=== PATIENT | female | born 1960 | race Caucasian/White ===

== ENCOUNTER → 2018-07-07 16:33 | Outpatient (CLI) | payer OTHER, SELFPAY ==
--- NOTE | 2018-07-07 16:41 | BI_ITS ---
MAMMOGRAPHY - BILATERAL SCREENING REASON FOR EXAM: Female, 58 years old. Routine annual screening examination. PERTINENT HISTORY: fam hx sister age 37 no sx TECHNIQUE: Digital bilateral breast fernando (3D mammographic acquisition) in the CC and MLO projections. 2-D mediolateral oblique (MLO) and craniocaudad (CC) views of both breasts were obtained. CAD: Full Field Digital Mammography with Computer Added Detection was performed. COMPARISON: Jul 11 2015 8:23am FINDINGS: Breast Composition: There are scattered areas of fibroglandular density. There are no dominant masses or suspicious calcifications. No other significant abnormalities are identified. BI/SCREENING MAMM (CAD), BILAT IMPRESSION: Stable bilateral screening mammogram. Yearly follow-up mammogram recommended. (A) ASSESSMENT CATEGORY: BIRADS Category 2: Benign. A letter regarding these results will be sent to the patient by the facility within 30 days. Approximately 10% of breast cancers are not detected by mammography. A normal mammogram should not delay biopsy of a clinically suspicious abnormality. [id number] Electronically Signed: Lucho Velásquez MD at 14:29 EDT Tel , Service support ,
== END ==
PROVIDERS: Family Provider Family Medicine; PCP Family Medicine; Referring Provider Obstetrics & Gynecology; Visit Provider Obstetrics & Gynecology
DX: Z12.31 Encounter for screening mammogram for malignant neoplasm of breast (principal)
CPT/HCPCS: 77063; 77067

== ENCOUNTER → 2018-09-14 17:13 | Outpatient (CLI) | payer OTHER, SELFPAY ==
[2018-09-14 10:18] VITALS: BMI 33.0
--- OUTSIDE RECORDS SUMMARY | 2018-11-01 02:22 | XMS RPT_ITS ---
:1960 Author Organization [facility] Care Team Providers Name Role Phone KEITH BEGUM Attending Unavailable KEITH BEGUM Referring Unavailable Abigail Gibbons Attending Unavailable Abigail Gibbons Referring Unavailable Keith Begum Primary Care Unavailable Keith Begum Attending Unavailable Abigail Gibbons Attending Unavailable Abigail Gibbons Referring Unavailable Keith Begum Primary Care Unavailable Abigail Gibbons Attending Unavailable Keith Begum Referring Unavailable PROBLEMS PROBLEMS DATE TYPE CONDITION / CODE ATTENDING STATUS SOURCE 09/14/2018 Unknown N39.42 - Marcanthony, Active [place] Incontinence [facility] without sensory Hospital awareness / Repository N39.42(ICD-10) 09/14/2018 Unknown N39.0 - Urinary Marcanthony, Active [place] tract infection, [facility] site not specified Hospital / N39.0(ICD-10) Repository 09/14/2018 Unknown F32.2 - Major Marcanthony, Active [place] depressive [facility] disorder, single Hospital episode, severe Repository without psychotic features / F32.2(ICD-10) 09/14/2018 Unknown Z01.411 - Encounter Marcanthony, Active [place] for gynecological [facility] (general) (routine) Repository with abnormal findings / Z01.411(ICD-10) 06/09/2018 Active Unknown / KEITH BEGUM Active [facility] UNK(Unknown) Main [place] Repository PROCEDURES PROCEDURES No Procedure Records 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 REPOSITORY [facility] [address] [place] [address]. [address] [place] [address] OFFICE VISIT Date of Service: 09/14/18 MR#: [id number] Acct: [id number] Name: RAMILA CORONA Rep #: [id number] : 1960 Provider: Abigail Gibbons MD Age/Sex: 58/F Location: [facility] Status: Signed Intake Vital Signs09/14/18 Height 5 ft 8 in 09/14/18 Weight: 217 lb 4 oz 09/14/18 Body Mass Index (BMI) 33.0 09/14/18 Blood Pressure 122/78 H Intake Visit Reasons: ANNUAL - R/S FROM 09/09 Head Rigger Required: No Is patient in pain?: No Allergies No Known Allergies Allergy (Verified 09/14/18 10:19) Medications estradiol 0.01% (0.1 mg/gram) vaginal cream 1 g VAGINAL DAILY 09/14/18 [History Confirmed 09/14/18] fluticasone 50 mcg/actuation nasal spray,suspension 1 spray INTRANASAL DAILY 09/14/18 [History Confirmed 09/14/18] venlafaxine ER 75 mg capsule,extended release 24 hr 75 mg PO DAILY #30 cap 09/14/18 [Rx Confirmed 09/14/18] Is last menstrual period known: No Post menopausal: No Patient : No : No PFSH Medical History Arthritis (Acute) Surgical History Ganglion cyst (Acute) H/O tubal ligation (Acute) History of tonsillectomy and adenoidectomy (Acute) Social History number of children: 3 current occupational status: employed current occupation: [employer] Smoking Status: Never smoker alcohol intake: never substance use type: does not use seatbelt use: always do you feel safe at home: Yes additional social history: [employer] Pregancy History 3 Elective abortions Hx Para 3 Spontaneous abortions Past Pregnancies Del. DateName GA/Weeks Outcome Route Bth WeighInfant GeLabor LgtAnesthesiDel LocatProvider FOB t n h a n HPI ANNUAL - R/S FROM 09/09: Details: RAMILA CORONA is a 58 year old who presents for annual exam. dtr layton mckeon is struggling and her and her are estranged. she is living with her right now. he is struggling with a PTSD or something. she is strugglingw ith depression now, feeling agitated, not sleeping, anhedonia, feeling withdrawn. Last PAP: 2015 nl pap hpv at [facility] History of abnormal PAP: no Last mammogram: july History of abnormal mammogram: Colon cancer screening: per pcp Other preventative health care screenings: pcp Female Reproductive History Questions: Metorrhagia: No, Sexually active: Yes, Dyspareunia: No, PCB: No Menopausal Symptoms: Yes night sweats, Yes hot flashes ROS Const Constitutional: Reports night sweats Cardio Card: Denies chest pain Resp Resp: Denies dyspnea or cough GI GI: Reports as per HPI; denies bloating, abdominal pain, constipation, vomiting or nausea : Reports hot flashes, urinary frequency and urinary incontinence (3-4x weekly); denies nipple discharge Skin Skin/Breast: Denies breast pain, breast skin changes, nipple discharge, breast lump or changing lesions Exam Const General: cooperative, healthy appearing, comfortable, no acute distress, well developed, well groomed HENMT Head: normal to inspection, normocephalic Ears: hearing grossly normal bilaterally, external ears normal Nose: external nose normal Face and sinus: normal facial exam Neck Neck: normal visual inspection, full ROM, no lymphadenopathy Thyroid: thyroid normal Chest Chest palpation AND inspection: normal inspection of the chest Breast inspection: normal inspection of the breasts, normal inspection of the axillae Breast palpation: normal palpation of the breasts, normal palpation of the axillae, no axillary lymphadenopathy Resp Effort AND Inspection: normal respiratory effort GI Inspection: normal to inspection, non-distended Palpation: no guarding, soft, no hepatosplenomegaly General: bladder normal to palpation External Female Exam: normal external appearance, normal appearance of the urethra, no lesions Urethra: normal appearance of the urethra, normal palpation Speculum Exam - Vagina: normal appearance of the vagina, normal vaginal discharge Speculum Exam - Cervix: normal appearance of the cervix, no cervical discharge, no lesions, nontender Bimanual Exam- Vagina AND Uterus: No cervical tenderness, normal bimanual exam, uterine size normal, bladder normal to palpation, uterine mobility normal, uterine consistency normal, uterus non-tender, no cervical motion tenderness Bimanual Exam- Adnexa, other: normal adnexae, no adnexal masses, adnexae non-tender Skin General: no rashes or lesions noted Neuro General: alert, moves all extremities, no focal motor deficits Extrem General: no pedal edema, normal to inspection Psych Appearance: grossly normal Mental Status: mental status grossly normal Affect: normal affect Speech and Movement: speech and movement normal Attitude: cooperative Assessment AND Plan Problems 1. Current severe episode of major depressive disorder without psychotic features without prior episode F32.2 effexor, recommend counseling. 2. Encounter for gynecological examination with abnormal finding Z01.411 3. Urinary incontinence without sensory awareness N39.42 Plan Cervical cancer screening: pap hpv 2016 u pto date Breast cancer screening: mamm other health maintenance examination reviewed and orders placed if needed. Encouraged maintenance of a healthy weight and active lifestyle and handout given. Annual exam handout including recommendations for good health guidelines, Calcium/vitamin D recommendations, and basic screening information given. Problem list up to date, see problem list details for any additional plan information. Follow up in one year for annual health maintenance exam or sooner if needed. 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 prior episode F32.2 Depression Type: major depressive disorder Major depression recurrence: single episode Active/Remission status: currently active Major depression episode severity: severe Psychotic features: without psychotic features Encounter for gynecological examination with abnormal finding Z01.411 Gynecological examination findings: abnormal findings PRESENT Urinary incontinence without sensory awareness N39.42 Urinary Incontinence type: urinary incontinence without sensory awareness 09/14/18 1104 <Electronically signed by Abigail Gibbons MD> Date Abigail Gibbons MD Cosigner Signature: Date (if applicable) CC: Observed: 09/14/2018 Status: F Source: [place] CULTURE, URINE 12:[address] [facility] REPOSITORY Urine Culture Culture exhibits no growth. Performed By: #### M100.0650 #### [facility] [address] [place] [address]. [place], [address] SCREENING MAMM (CAD), Observed: 07/07/2018 Status: F Source: [place] BILAT 4:[address] [facility] REPOSITORY [facility] Imaging Services [address] [place] [address] SCREENING MAMM (CAD), BILAT MR#: [id number] Acct: [id number] Name: GABRIELARAMILA Riddhi Rep #: [id number] : 1960 F 58 From: Lucho Velásquez MD PCP: Keith Begum DO Status: REG CLI Study: SCREENING MAMM (CAD), BILAT Date of Exam: 07/07/18 Exam# [id number] Ordering Dr: Abigail Gibbons MD MAMMOGRAPHY - BILATERAL SCREENING REASON FOR EXAM: Female, 58 years old. Routine annual screening examination. PERTINENT HISTORY: fam hx sister age 37 no sx TECHNIQUE: Digital bilateral breast fernando (3D mammographic acquisition) in the CC and MLO projections. 2-D mediolateral oblique (MLO) and craniocaudad (CC) views of both breasts were obtained. CAD: Full Field Digital Mammography with Computer Added Detection was performed. COMPARISON: Jul 11 2015 8:23am FINDINGS: Breast Composition: There are scattered areas of fibroglandular density. There are no dominant masses or suspicious calcifications. No other significant abnormalities are identified. BI/SCREENING MAMM (CAD), BILAT IMPRESSION: Stable bilateral screening mammogram. Yearly follow-up mammogram recommended. (A) ASSESSMENT CATEGORY: BIRADS Category 2: Benign. A letter regarding these results will be sent to the patient by the facility within 30 days. Approximately 10% of breast cancers are not detected by mammography. A normal mammogram should not delay biopsy of a clinically suspicious abnormality. [id number] Electronically Signed: Lucho Velásquez MD at 14:29 EDT Tel , Service support , CC: Keith Begum DO; Abigail Gibbons MD Incinerator Attendant: Signed PROGRESS Observed: 06/09/2018 Status: COMPLETED Source: [place] 2:43 PM [facility] [place] REPOSITORY O ID: [id number] Author: Keith Begum V Service: (none) Author Type: Physician Type: Progress Notes Filed: 06/09/2018 2:47 PM Note Text: SUBJECTIVE: Ramila Corona presents with the complaint of Low Back Pain,acute onset . The pain is located in lower back, right gluteal, described as aching, cramping and shooting, and rated as moderate. Symptoms started 1 day after lifting a sectional unit. No pain at the time, but the following 2 days pain worsened significantly. No bowel or bladder dysfunction. No leg weakness. She describes intermittent paresthesias in right leg, but not constant. PAST MEDICAL HISTORY Diagnosis Date - Excessive or frequent menstruation Heavy periods - Irregular menstrual cycle Irregular periods - Irritable bowel syndrome Irritable bowel resolved - Postcoital bleeding resolved - Postmenopausal atrophic vaginitis Atroph. vaginitis/post-men. - Premenstrual tension syndromes PMS - Symptomatic menopausal or female climacteric states - Unspecified urinary incontinence Incontinence/slight resolved outside hospital Current Outpatient Prescriptions on File Prior to Visit: benzonatate (TESSALON PERLE) 100 mg capsule Take 1 capsule by mouth three times daily as needed. fluticasone (FLONASE) 50 mcg/actuation nasal spray Use 2 Sprays in each nostril once daily. Rinse mouth after use. albuterol HFA (PROAIR HFA) 90 mcg/actuation inhaler Inhale 2 Puffs as instructed every 4 hours as needed. celecoxib (CELEBREX) 200 mg capsule Take 1 capsule by mouth once daily. metaxalone (SKELAXIN) 800 mg tablet Take 1 tablet by mouth three times daily as needed for Pain. metaxalone (SKELAXIN) 800 mg tablet Take 1 tablet by mouth three times daily as needed for Pain. venlafaxine ER (EFFEXOR XR) 75 mg 24 hr capsule Take 1 capsule by mouth once daily. estradiol (ESTRACE) 0.01 % (0.1 mg/gram) vaginal cream Use fingertip amount nightly x 2 weeks, then every other night x 2 weeks, then 1-2x weekly for maintenance venlafaxine ER (EFFEXOR XR) 75 mg 24 hr capsule Take 1 capsule by mouth once daily. LORATADINE (CLARITIN ORAL) Take by mouth as needed. codeine-guaiFENesin (ROBITUSSIN AC) 10-100 mg/5 mL syrup Take 5-10 mL by mouth four times daily as needed for Cough. May cause drowsiness. phenazopyridine (PYRIDIUM) 100 mg tablet Take 1 tablet by mouth three times daily as needed. No current facility-administered medications on file prior to visit. 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[employer]* Social History Main Topics Smoking status: Never Smoker Smokeless tobacco: Never Used Alcohol use: Yes Comment: occasional wine Drug use: No Sexual activity: Yes Partners with: Male control/protection: Surgical OBJECTIVE: Range of Motion Spine: extension limited, flexion limited, lateral rotation limited Gait: normal gait Muscle Spasm yes Strength lower extremeties normal Sensory exam Lower Extremeties normal Spinal Tenderness right lumbar paraspinal Straight Leg Raise: sitting negative, lying negative Assessment AND Plan: Lumbar sprain Handout given with low back stretching exercises watch for red flag symptoms Signed Prescriptions Disp Refills predniSONE (DELTASONE) 10 mg tablet 39 tablet 0 Sig: Take 6 tabs for 3 days, then 4 tabs for 3 days, then 2 tabs for 3 days then 1 tab for 3 days with food. cyclobenzaprine (FLEXERIL) 10 mg tablet 15 tablet 0 Sig: Take 1 tablet by mouth three times daily as needed for Muscle Spasm. Keith Begum DO CNOV Observed: 06/09/2018 Status: COMPLETED Source: [place] 2:20 PM [facility] REPOSITORY Office Visit (UC) RAMILA CORONA ([id number]) 1960 F Date Time Provider Department 06/09/18 2:20 PM KEITH BEGUM During your visit today, we recorded the following information about you: Keith Begum DO 06/09/2018 2:47 PM Signed SUBJECTIVE: Ramila Corona presents with the complaint of Low Back Pain,acute onset . The pain is located in lower back, right gluteal, described as aching, cramping and shooting, and rated as moderate. Symptoms started 1 day after lifting a sectional unit. No pain at the time, but the following 2 days pain worsened significantly. No bowel or bladder dysfunction. No leg weakness. She describes intermittent paresthesias in right leg, but not constant. PAST MEDICAL HISTORY Diagnosis Date - Excessive or frequent menstruation Heavy periods - Irregular menstrual cycle Irregular periods - Irritable bowel syndrome Irritable bowel resolved - Postcoital bleeding resolved - Postmenopausal atrophic vaginitis Atroph. vaginitis/post-men. - Premenstrual tension syndromes PMS - Symptomatic menopausal or female climacteric states - Unspecified urinary incontinence Incontinence/slight resolved outside hospital Current Outpatient Prescriptions on File Prior to Visit: benzonatate (TESSALON PERLE) 100 mg capsule Take 1 capsule by mouth three times daily as needed. fluticasone (FLONASE) 50 mcg/actuation nasal spray Use 2 Sprays in each nostril once daily. Rinse mouth after use. albuterol HFA (PROAIR HFA) 90 mcg/actuation inhaler Inhale 2 Puffs as instructed every 4 hours as needed. celecoxib (CELEBREX) 200 mg capsule Take 1 capsule by mouth once daily. metaxalone (SKELAXIN) 800 mg tablet Take 1 tablet by mouth three times daily as needed for Pain. metaxalone (SKELAXIN) 800 mg tablet Take 1 tablet by mouth three times daily as needed for Pain. venlafaxine ER (EFFEXOR XR) 75 mg 24 hr capsule Take 1 capsule by mouth once daily. estradiol (ESTRACE) 0.01 % (0.1 mg/gram) vaginal cream Use fingertip amount nightly x 2 weeks, then every other night x 2 weeks, then 1-2x weekly for maintenance venlafaxine ER (EFFEXOR XR) 75 mg 24 hr capsule Take 1 capsule by mouth once daily. LORATADINE (CLARITIN ORAL) Take by mouth as needed. codeine-guaiFENesin (ROBITUSSIN AC) 10-100 mg/5 mL syrup Take 5-10 mL by mouth four times daily as needed for Cough. May cause drowsiness. phenazopyridine (PYRIDIUM) 100 mg tablet Take 1 tablet by mouth three times daily as needed. No current facility-administered medications on file prior to visit. 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[employer]* Social History Main Topics Smoking status: Never Smoker Smokeless tobacco: Never Used Alcohol use: Yes Comment: occasional wine Drug use: No Sexual activity: Yes Partners with: Male control/protection: Surgical OBJECTIVE: Range of Motion Spine: extension limited, flexion limited, lateral rotation limited Gait: normal gait Muscle Spasm yes Strength lower extremeties normal Sensory exam Lower Extremeties normal Spinal Tenderness right lumbar paraspinal Straight Leg Raise: sitting negative, lying negative Assessment AND Plan: Lumbar sprain Handout given with low back stretching exercises watch for red flag symptoms Signed Prescriptions Disp Refills predniSONE (DELTASONE) 10 mg tablet 39 tablet 0 Sig: Take 6 tabs for 3 days, then 4 tabs for 3 days, then 2 tabs for 3 days then 1 tab for 3 days with food. cyclobenzaprine (FLEXERIL) 10 mg tablet 15 tablet 0 Sig: Take 1 tablet by mouth three times daily as needed for Muscle Spasm. Keith Begum DO Referring Provider: KEITH BEGUM V [[id number]] Allergies As of Date: 06/09/2018 Noted Allergy Reaction environmental [Other] 04/07/2006 Comments: fall=swelling, nasal drainage Date Reviewed: 10/21/2017 Reviewed by: Sima Fleming (Residential Interior Designer) KARLOS Lira - Fully Assessed Primary Visit Diagnosis:Lumbar strain, initial encounter [S39.012A] Order(s):predniSONE (DELTASONE) 10 mg tabletTake 6 tabs for 3 days, then 4 tabs for 3 days, then 2 tabs for 3 days then 1 tab for 3 days with food.Disp: 39 tabletRfl: 0 cyclobenzaprine (FLEXERIL) 10 mg tabletTake 1 tablet by mouth three times daily as needed for Muscle Spasm.Disp: 15 tabletRfl: 0 Prescriptions as of 06/09/2018 Sig: PREDNISONE 10 MG TABLET Take 6 tabs for 3 days, then * CYCLOBENZAPRINE 10 MG TABLET Take 1 tablet by mouth three * BENZONATATE 100 MG CAPSULE Take 1 capsule by mouth three* FLUTICASONE 50 MCG/ACTUATION * Use 2 Sprays in each nostril * ALBUTEROL SULFATE HFA 90 MCG/* Inhale 2 Puffs as instructed * CELECOXIB 200 MG CAPSULE Take 1 capsule by mouth once * METAXALONE 800 MG TABLET Take 1 tablet by mouth three * METAXALONE 800 MG TABLET Take 1 tablet by mouth three * VENLAFAXINE ER 75 MG CAPSULE,* Take 1 capsule by mouth once * ESTRADIOL 0.01% (0.1 MG/GRAM)* Use fingertip amount nightly * VENLAFAXINE ER 75 MG CAPSULE,* Take 1 capsule by mouth once * CLARITIN ORAL Take by mouth as needed. CODEINE 10 MG-GUAIFENESIN 100* Take 5-10 mL by mouth four ti* PHENAZOPYRIDINE 100 MG TABLET Take 1 tablet by mouth three * Problem List As Of Date 06/09/2018 Noted Resolved Lump or mass in breast [N63.0] INVALID FOR*06/18/2016 SYMPTOMATIC FEMALE CLIMACTERIC STATE [N95.1] INVALID FOR* Female Stress Incontinence [N39.3] INVALID FOR*06/04/2010 Postcoital Bleeding [N93.0] INVALID FOR*06/04/2010 Excessive or frequent menstruation [N92.0] INVALID FOR*05/28/2011 Headache [R51] INVALID FOR*05/28/2011 Menstrual migraine [G43.829] INVALID FOR*06/18/2016 Prescriptions ordered this encounter Disp Refills Start End PREDNISONE 10 MG TABLET 39 t* 0 06/09/2018 06/21/2018 Sig: Take 6 tabs for 3 days, then 4 tabs for 3 days, then 2 tabs for 3 days then 1 tab for 3 days with food. CYCLOBENZAPRINE 10 MG TABLET 15 t* 0 06/09/2018 Route: ORAL Sig: Take 1 tablet by mouth three times daily as needed for Muscle Spasm. Encounter Status:Closed by KEITH BEGUM DO, V on 06/09/18 ALLERGIES ALLERGIES DATE TYPE / CODE NAME / CODE REACTION SEVERITY SOURCE 09/14/2018 Drug No Known Unknown [place] Allergy/[id number](S Allergies/F [facility] NOMED CT) [id number]([facility] XNORM) Repository 04/07/2006 Miscellaneous OTHER [facility] Allergy/[id number]([facility] NOMED CT) Repository ENCOUNTERS ENCOUNTERS ADMIT/DISCHARGE ACCOUNT ADMITTING ENCOUNTER LOCATION SOURCE NUMBER CLASS 09/14/2018 [id number] Ambulatory [facility] ing:LABSPEC Repository 09/14/2018/09/14/20 [id number] Ambulatory BMSBuilding:B [place] [address] Repository 07/07/2018 [id number] Ambulatory [facility] ing:OPBI Repository 06/09/2018/06/11/20 [id number] Ambulatory [address] Repository 12/24/2017 [id number] Ambulatory BMSBuilding:B [place] MS[facility] Repository PAYERS PAYERS ENCOUNTER GUARANTOR PAYER SUBSCRIBER SOURCE 09/14/2018 RAMILA Jaime [place] [id number] Insurance:AULTCAREPol CulbertsonDOB: Community [place] Number: [id number] [id number] Repository [address]Eeu: ([phone]) Date:6941-05-49[phone] (HP) [place], [place] [address]JQ: 09/14/2018 Secondary NOT GIVENUNK Mary Ann Insurance:SELF PAY [facility]: Effective Repository Date:2018-09-14 09/14/2018 RAMILA Hannon Primary Cathy Walls [id number] Insurance:AULTCAREPol CulbertsonDOB: Community [place] Number: [id number] [place], [place] [id number] Repository [address]Qwy: ([phone]) Date:8123-85-85LX [phone] () [address], [place] [address]RL: 09/14/2018 Secondary NOT GIVENUNK Mary Ann Insurance:SELF PAY [facility] Number: Effective Repository Date:2018-09-14 07/07/2018 Cathy Primary Cathy Walls [id number] Insurance:AULTCAREPol CulbertsonDOB: Community [place] icy Number: [id number], [place] [id number] Repository [address]Hce: ([phone]) Date:1007-04-70CA [phone] (HP) [address], [place] [address]EP: 07/07/2018 Secondary NOT GIVENUNK [place] Insurance:SELF PAY [facility] Number: Effective Repository Date:2018-06-16 12/24/2017 RAMILA Hannon Primary Cathy Walls [id number] Insurance:AULTCAREPol CulbertsonDOB: Community [place] Number: [id number] [place], [place] [id number] Repository [address]Bsg: (330) Date:7686-11-16LY [phone] (HP) [address], [place] [address]DU: 12/24/2017 Secondary NOT GIVENUNK Mary Ann Insurance:SELF PAY [facility] Number: Effective Repository Date:2017-12-24
== END ==
PROVIDERS: Family Provider Family Medicine; PCP Family Medicine; Referring Provider Obstetrics & Gynecology; Visit Provider Obstetrics & Gynecology
DX: N39.42 Incontinence without sensory awareness (principal); N39.0 Urinary tract infection, site not specified
CPT/HCPCS: 87086

== ENCOUNTER → 2020-07-04 | Outpatient (CLI) | payer OTHER, SELFPAY ==
[2018-09-14 10:18] VITALS: BMI 33.0
--- NOTE | 2020-07-04 07:30 | BI_ITS ---
MAMMOGRAPHY - BILATERAL SCREENING REASON FOR EXAM: Female, 60 years old. Routine annual screening examination. PERTINENT HISTORY: Sister with breast cancer. TECHNIQUE: Digital bilateral breast robert (3D mammographic acquisition) in the CC and MLO projections. 2-D mediolateral oblique (MLO) and craniocaudad (CC) views of both breasts were obtained. CAD: Full Field Digital Mammography with Computer Added Detection was performed. COMPARISON: Comparison is made with prior study dated 07/07/2018. FINDINGS: Breast Composition: The breasts are almost entirely fatty. There are no dominant masses or suspicious calcifications. No other significant abnormalities are identified. There has been no significant change since the prior study. BI/SCREEN MAMM (CAD) W/ROBERT BILAT IMPRESSION: Stable bilateral screening mammogram. Yearly follow-up mammogram recommended. (A) ASSESSMENT CATEGORY: BIRADS Category 1: Negative. A letter regarding these results will be sent to the patient by the facility within 30 days. Approximately 10% of breast cancers are not detected by mammography. A normal mammogram should not delay biopsy of a clinically suspicious abnormality. [id number] Electronically Signed: Emanuel Bazan, at 8:35 EDT , Service support ,
== END | disposition home or self-care (01) ==
LOC: OPBI 07:30
PROVIDERS: PCP Family Medicine; Referring Provider Obstetrics & Gynecology; Visit Provider Obstetrics & Gynecology
DX: Z12.31 Encounter for screening mammogram for malignant neoplasm of breast (principal)
CPT/HCPCS: 77063; 77067

== ENCOUNTER → 2022-02-08 | Outpatient (CLI) | payer OTHER, SELFPAY ==
--- NOTE | 2022-02-08 11:44 | BI_ITS ---
MAMMOGRAPHY - BILATERAL SCREENING REASON FOR EXAM: Female, 61 years old. Routine annual screening examination. PERTINENT HISTORY: Sister with breast cancer. TECHNIQUE: Digital bilateral breast robert (3D mammographic acquisition) in the CC and MLO projections. 2-D mediolateral oblique (MLO) and craniocaudad (CC) views of both breasts were obtained. CAD: Full Field Digital Mammography with Computer Added Detection was performed. COMPARISON: Comparison is made with prior study dated 07/04/2020 and 07/07/2018. FINDINGS: Breast Composition: The breasts are almost entirely fatty. There are no dominant masses or suspicious calcifications. No other significant abnormalities are identified. There has been no significant change since the prior study. BI/SCRN MAMM (CAD)W/ROBERT BILAT IMPRESSION: Stable bilateral screening mammogram. Yearly follow-up mammogram recommended. (A) ASSESSMENT CATEGORY: BIRADS Category 2: Benign. A letter regarding these results will be sent to the patient by the facility within 30 days. Approximately 10% of breast cancers are not detected by mammography. A normal mammogram should not delay biopsy of a clinically suspicious abnormality. [id number] Electronically Signed: Emanuel Bazan MD at 12:33 EDT ,
== END | disposition home or self-care (01) ==
LOC: OPBI 11:43
PROVIDERS: PCP Family Medicine; Referring Provider Obstetrics & Gynecology; Visit Provider Obstetrics & Gynecology
DX: Z12.31 Encounter for screening mammogram for malignant neoplasm of breast (principal); Z80.3 Family history of malignant neoplasm of breast
CPT/HCPCS: 77063; 77067

== ENCOUNTER 2022-03-30 15:14 | Emergency (ER) | payer OTHER, SELFPAY ==
[2022-03-30 15:14] VITALS: BP 130/86; PULSE 76; RESP 18; TEMP 36.9; O2SAT 99; BMI 30.4
--- NOTE | 2022-03-30 16:50 | EDS_ITS ---
HPI History of Present Illness Chief Complaint: Dental Informant: patient Onset/Context/Timing Onset: Days Context: Gradual Onset Narrative Narrative: Patient presents with a left lower dental abscess. Patient states she had a bad tooth that is broken. It has been abscessed recently. She went to the dentist yesterday and they started her on amoxicillin. She is due to have it extracted next Friday. She woke this morning with swelling along her left jaw. She was given a prescription for ibuprofen 600 mg but states that is not controlling the pain. [facility] Medical History Arthritis Fibromyalgia Home Medications amoxicillin 875 mg tablet 875 mg PO BID 03/30/22 [History Last Taken Unknown] clindamycin HCl 150 mg capsule 300 mg PO 4X/DAY #80 caps 03/30/22 [Rx Last Taken Unknown] hydrocodone-acetaminophen 5-325mg 5mg-325mg 1 tab PO Q6H PRN pain 3 days #10 tabs 03/30/22 [Rx Last Taken Unknown] nortriptyline 25 mg capsule 25 cap PO DAILY 03/30/22 [History Last Taken Unknown] Allergy/AdvReac Type Severity Reaction Status Date / Time No Known Allergies Allergy Verified 03/30/22 15:16 Family History no significant family his no significant family history Surgical History Ganglion cyst H/O tubal ligation History of tonsillectomy and adenoidectomy Surgical History no surgical history no surgical history Social History (Updated 09/14/18 @ 11:[address] Abigail Gibbons MD) number of children: 3 current occupational status: employed current occupation: [employer] Smoking Status: Never smoker alcohol intake: never substance use type: does not use seatbelt use: always do you feel safe at home: Yes additional social history: [employer] ROS ROS ED Constitutional Constitutional ED: Denies chills or fever(s) Eyes Eyes: Denies change in vision or discharge from eye(s) ENT ENT ED: Reports other Details: Left lower dental pain with facial swelling. ; Denies discharge from eye(s), rhinorrhea or sore throat Cardiovascular Cardiovascular: Denies chest pain or palpitations Respiratory/Chest Respiratory/Chest: Denies cough or dyspnea Gastrointestinal Gastrointestinal: Denies abdominal pain, diarrhea, nausea or vomiting Genitourinary Genitourinary ED: Denies difficulty urinating or dysuria Musculoskeletal Musculoskeletal: Denies back pain or extremity pain Integumentary Denies Abrasions or rash Neurologic Neurologic: Denies headache(s) Allergic/Immunologic Allergic/Immunologic ED: Denies lip swelling or urticaria EXAM Physical Exam Const Vital Signs: 03/30/22 15:14 Temperature 98.4 F Temperature Source Temporal Pulse Rate 76 Respiratory Rate 18 Blood Pressure 130/86 H Blood Pressure Mean 100 Pulse Ox 99 Oxygen Delivery Method Room Air Positive well nourished and well developed General Appearance ED: well developed HEENT HEENT Narrative: Edema noted along the left mandible. No overlying skin change. Left mandibular molar is broken at gumline with surrounding gum edema. There is no trismus. There is no evidence of Vel's angina. Eyes PERRL and EOMs intact bilaterally Chest Wall inspection of chest normal and palpation of chest normal Resp normal respiratory effort and no retractions Cardio regular rate and regular rhythm GI normal to inspection, nondistended, normoactive bowel sounds and non-tender Extremity normal to inspection Neuro oriented x3 Psych mental status grossly normal Skin no rashes or lesions noted MDM MDM MDM Narrative Medical decision making narrative: Patient was recently on a course of Augmentin and now put on a course of amoxicillin. She will be switched to clindamycin. I will also write her for short course of [place] for pain control. We discussed Vel's angina and what to watch for at home. Return instructions are provided. Discharge Plan Triage Chief Complaint: Dental ED Provider: Elham Lira Dx/Rx/DC Orders Clinical Impression: Abscess, dental Instructions: ED Dental Abscess Prescriptions: New clindamycin HCl 150 mg capsule 300 mg PO 4X/DAY Qty: 80 0RF hydrocodone-acetaminophen 5-325 mg tablet 1 tab PO Q6H PRN (Reason: pain) 3 Days Qty: 10 0RF No Action nortriptyline 25 mg capsule 25 cap PO DAILY Label Comments: TAKE 1 CAPSULE BY MOUTH EVERYDAY AT BEDTIME amoxicillin 875 mg Tablet 875 mg PO BID Primary Care Provider: Keith Begum Referrals: Keith Begum DO [Primary Care Provider] - Activity Restrictions/Additional Instructions: Follow-up with your dentist on Friday as scheduled. Disposition Disposition: Home, Self Care Discharge Date/Time: 03/30/22 17:14
== END 2022-03-30 17:14 | disposition home or self-care (01) ==
LOC: ED 17:01
PROVIDERS: Emergency Provider Emergency Medicine; PCP Family Medicine; Visit Provider Emergency Medicine
DX: K04.7 Periapical abscess without sinus (principal)
CPT/HCPCS: 99282

== ENCOUNTER → 2022-07-12 | Outpatient (CLI) | payer OTHER, SELFPAY ==
[2022-07-17 11:58] LABS: HPV APTIMA, High Risk Negative (Negative)
== END | disposition home or self-care (01) ==
LOC: LABSPEC 06:49
PROVIDERS: PCP Family Medicine; Visit Provider Obstetrics & Gynecology
DX: Z12.4 Encounter for screening for malignant neoplasm of cervix (principal)
CPT/HCPCS: 87624; 88175; G0145

== ENCOUNTER → 2023-05-14 | Outpatient (CLI) | payer OTHER, SELFPAY ==
--- NOTE | 2023-05-14 07:57 | BI_ITS ---
MAMMOGRAPHY - BILATERAL SCREENING REASON FOR EXAM: Female, 63 years old. Routine annual screening examination. PERTINENT HISTORY: Sister with breast cancer. TECHNIQUE: Digital bilateral breast robert (3D mammographic acquisition) in the CC and MLO projections. 2-D mediolateral oblique (MLO) and craniocaudad (CC) views of both breasts were obtained. CAD: Full Field Digital Mammography with Computer Added Detection was performed. COMPARISON: Comparison is made with prior study dated February 08, 2022 and July 04, 2020. FINDINGS: Breast Composition: The breasts are almost entirely fatty. There are no dominant masses or suspicious calcifications. No other significant abnormalities are identified. There has been no significant change since the prior study. BI/SCRN MAMM (CAD)W/ROBERT BILAT IMPRESSION: Stable bilateral screening mammogram. Yearly follow-up mammogram recommended. (A) ASSESSMENT CATEGORY: BIRADS Category 1: Negative. A letter regarding these results will be sent to the patient by the facility within 30 days. Approximately 10% of breast cancers are not detected by mammography. A normal mammogram should not delay biopsy of a clinically suspicious abnormality. [id number] Electronically Signed: Emanuel Bazan MD at 9:35 EDT ,
== END | disposition home or self-care (01) ==
LOC: OPBI 07:55
PROVIDERS: PCP Family Medicine; Referring Provider Obstetrics & Gynecology; Visit Provider Obstetrics & Gynecology
DX: Z12.31 Encounter for screening mammogram for malignant neoplasm of breast (principal); Z80.3 Family history of malignant neoplasm of breast
CPT/HCPCS: 77063; 77067